=== PATIENT | male | born 1955 | race Caucasian/White ===

== ENCOUNTER → 2017-12-19 08:30 | Outpatient (CLI) | payer MEDICARE, MEDICAID, SELFPAY ==
[2017-12-19 11:14] LABS: AST(SGOT) 20 U/L (15-37); Alanine Aminotransfer ALT/SGPT 32 U/L (16-61); Albumin, Serum 3.7 g/dL (3.2-5.0); Alkaline Phosphatase 106 U/L (45-117); Anion Gap 8 (5-15); BUN 21 mg/dL (7-18); Calcium,Total 8.9 mg/dL (8.5-10.1); Chloride 102 mmol/L (98-107); Creatinine, Serum 0.57 mg/dL (0.70-1.30); EST Glomerular Filtration Rate 155 mL/min (>60); Est Glom Filt Rate - Afr Amer 187 mL/min (>60); Globulin 3.8 g/dL (2.2-4.2); Glucose 88 mg/dL (74-106); Potassium 3.6 mmol/L (3.5-5.1); Protein, Total 7.5 g/dL (6.4-8.2); Sodium Level 141 mmol/L (136-145)
== END ==
PROVIDERS: Family Provider Family Medicine; PCP Family Medicine; Visit Provider Psychiatry & Neurology Neurology
DX: G40.909 Epilepsy, unspecified, not intractable, without status epilepticus (principal)
CPT/HCPCS: 36415; 80053; 80156

== ENCOUNTER 2018-01-13 08:09 | Emergency (ER) | payer MEDICARE, MEDICAID, SELFPAY ==
[2018-01-13 08:11] VITALS: BP 153/89; PULSE 65; RESP 20; TEMP 36.2; O2SAT 98; BMI 24.7
--- NOTE | 2018-01-13 08:23 | CT_ITS ---
STUDY: CT BRAIN WITHOUT CONTRAST REASON FOR EXAM: Male, 62 years old. Harnessed into wheelchair-fell down several steps, laceration to bridge of nose and right forehead. Hx paraplegia with lower extremity atrophy, hypertension, seizures. RADIATION DOSAGE (If Supplied By Facility): CTDIvol = ( 44.99 ) mGy, DLP = ( 1794.70 ) mGycm TECHNIQUE: Transaxial CT imaging of the brain was performed without administration of intravenous contrast material. Individualized dose optimization techniques were used for this CT. COMPARISON: None. FINDINGS: Normal soft tissue structures. Normal calvarium. Normal size ventricles and extra-axial spaces for the patient's age. Subependymal calcifications are seen in the right and left lateral ventricles most likely due to an old infectious process or tuberous sclerosis. Normal white matter tracts of the cerebral hemispheres. Normal basal ganglia and thalami. Normal brainstem. There is severe cerebellar atrophy. There is no intracranial hemorrhage. There are no findings of an acute ischemic infarction. Normal visualized paranasal sinuses. CT/Brain/Head without Contrast IMPRESSION: Chronic involutional changes of the brain. Severe cerebellar atrophy. Subependymal calcifications in the right and left lateral ventricles most likely due to an old infectious process or tuberous sclerosis. Electronically Signed: Marcio Quiles MD at 9:39 EDT Tel , Service support ,
--- NOTE | 2018-01-13 08:23 | CT_ITS ---
STUDY: CT FACIAL BONES WITHOUT CONTRAST REASON FOR EXAM: Male, 62 years old. Harnessed into wheelchair-fell down several steps, laceration to bridge of nose and right forehead. Hx paraplegia with lower extremity atrophy, hypertension, seizures RADIATION DOSAGE (If Supplied By Facility): CTDIvol = ( 29.38 ) mGy, DLP = ( 591.53 ) mGycm TECHNIQUE: The patient was scanned in a multi detector CT scanner. Sagittal and coronal images were reconstructed. Individualized dose optimization techniques were used for this CT. COMPARISON: None. FINDINGS: Normal soft tissue structures. There is thickening of the osseous structures in the calvarium may be due to chronic cerebral volume loss. Normal orbital richards and orbital contents. There is deformity of the right nasal bone consistent with an old fracture. There is no evidence of acute bone injury. There is mucosal thickening in the ethmoid air cells, maxillary sinuses and sphenoid sinus suggesting chronic sinusitis more prominent in the left maxillary sinus. CT/Sinus/Facial Bone IMPRESSION: Chronic sinusitis. There is no evidence of acute fracture. Electronically Signed: Marcio Quiles MD at 9:55 EDT Tel , Service support ,
--- NOTE | 2018-01-13 08:23 | CT_ITS ---
STUDY: CT CERVICAL SPINE WITHOUT CONTRAST REASON FOR EXAM: Male, 62 years old. Harnessed into wheelchair-fell down several steps, laceration to bridge of nose and right forehead. Hx paraplegia with lower extremity atrophy, hypertension, seizures. RADIATION DOSAGE (If Supplied By Facility): CTDIvol = ( 20.98 ) mGy, DLP = ( 428.45 ) mGycm TECHNIQUE: High resolution transaxial imaging was performed without contrast material. Sagittal and coronal images were reconstructed. Individualized dose optimization techniques were used for this CT. COMPARISON: None FINDINGS: Normal craniovertebral junction. Normal anterior atlantoaxial articulation. Normal odontoid process. Normal cervical lordosis. Normal vertebral bodies and posterior osseous elements. C2-3: Endplate spondylosis. Central and paracentral disc bulge. Degenerative changes of the bilateral facet joints and uncovertebral joints. Severe narrowing of the central canal and the bilateral intervertebral neural foramina. C3-4: Anterior fusion in good alignment. Hypertrophic changes of the bilateral facet joints and uncovertebral joints. Moderate narrowing of the central canal and the bilateral intervertebral neural foramina. C4-5: Anterior fusion in good alignment. Hypertrophic changes of the bilateral facet joints and uncovertebral joints. Moderate narrowing of the central canal and the bilateral intervertebral neural foramina. C5-6: Anterior fusion in good alignment. Hypertrophic changes of the bilateral facet joints and uncovertebral joints. Moderate narrowing of the central canal and the bilateral intervertebral neural foramina. C6-7: Endplate spondylosis. Central and paracentral disc bulge. Degenerative changes of the bilateral facet joints and uncovertebral joints. Severe narrowing of the central canal and the bilateral intervertebral neural foramina. C7-T1: Endplate spondylosis. Decreased disc height and large circumferential disc osteophyte bulge. Degenerative changes of the bilateral facet joints. Severe narrowing of the central canal and bilateral intervertebral neural foramina. Normal visualized soft tissue structures. CT/Spine Cervical without Contras IMPRESSION: Multilevel degenerative changes, as described above. Electronically Signed: Marcio Quiles MD at 10:07 EDT Tel , Service support ,
--- NOTE | 2018-01-13 09:01 | ED.VISSUMM ---
- ER Visit Summary Date of Service: 01/13/18 Chief Complaint: Facial trauma History of Present Illness: The patient is a 62 M who presents with facial trauma. Patient was harnessed into his wheelchair when he rolled towards the steps and fell down 3 of the stairs. Patient is MR and paraplegic. Staff said that he was screaming the entire time and there was no LOC. He sustained lacerations to his face. He is moving all of his extremities as normal. He does live in a shelter. Last tetanus is unknown with paperwork given. Physical Examination: Vital signs are reviewed and are unremarkable. HEENT exam reveals a 1.5 center laceration to right forehead and there is a 1 cm laceration to the bridge of the nose. His pupils are equal. He is acting normally per staff. Neck has no step-offs is nontender. Heart is regular rate and rhythm. Lungs are clear. Abdomen is soft. Extremities reveal he has range of motion of his upper extremities. He is paraplegic of the lower extremities. His GCS is 14 which is his baseline. Test Results: CAT scan of the head, face and cervical spine reveals no acute findings Emergency Department Course and Treatment: Patient had a laceration repair. Lidocaine was used to anesthetize area. A total of 5, 5-0 sutures were placed. 2 were placed in the forehead and 3 on the nose. His tetanus is updated. He will have sutures out in 5-7 days. They will use topical antibacterial cream for the abrasions on the face. He will follow-up with his PCP Treatment Plan: [] Disposition: Discharge Impression: Facial contusion, facial laceration, 1.5 cm, facial laceration 1 cm, laceration repair by ED physician This note was generated with [employer] dictation software. It may contain incorrect words, spelling, and punctuation that were not noted in review of the chart prior to signing ED Disposition - Plan for ED Patient: Chief Complaint: Fall Referrals: Michel Cassidy MD [Primary Care Provider] -
[2018-01-13] MEDS: Diphth,Pertuss(Acell),Tet Vac 0.5 ML Vial IM (09:58)
[2018-01-13 09:59] VITALS: BP 159/109; PULSE 75; RESP 16; O2SAT 99
--- NOTE | 2018-01-13 10:12 | ED.DEP ---
ED Disposition - Plan for ED Patient: Disposition: Home or Assisted Living Chief Complaint: Fall Instructions: ED Laceration All Referrals: Michel Cassidy MD [Primary Care Provider] -
== END 2018-01-13 10:48 | disposition home or self-care (01) ==
PROVIDERS: Emergency Provider Emergency Medicine; Family Provider Family Medicine; PCP Family Medicine
DX: S01.81XA Laceration without foreign body of other part of head, initial encounter (principal); S01.21XA Laceration without foreign body of nose, initial encounter; S00.83XA Contusion of other part of head, initial encounter; R40.2410 Glasgow coma scale score 13-15, unspecified time; F79 Unspecified intellectual disabilities; G82.20 Paraplegia, unspecified; I10 Essential (primary) hypertension; W10.9XXA Fall (on) (from) unspecified stairs and steps, initial encounter; Y93.9 Activity, unspecified; Y92.9 Unspecified place or not applicable; Z79.899 Other long term (current) drug therapy
CPT/HCPCS: 12011; 70450; 70486; 72125; 90715; 99285

== ENCOUNTER → 2019-01-11 08:59 | Outpatient (CLI) | payer MEDICARE, MEDICAID, SELFPAY ==
[2019-01-11 10:37] LABS: Carbamazepine (Tegretol) 9.5 ug/mL (4.0-12.0)
[2019-01-11 13:53] LABS: ALB/GLOB Ratio 1.1 RATIO (0.9-2.4); AST(SGOT) 13 U/L (15-37); Alanine Aminotransfer ALT/SGPT 26 U/L (16-61); Albumin, Serum 3.7 g/dL (3.2-5.0); Alkaline Phosphatase 105 U/L (45-117); Anion Gap 9 (5-15); BUN 21 mg/dL (7-18); BUN/Creat Ratio 35.2 RATIO (10-20); Calcium,Total 9.1 mg/dL (8.5-10.1); Chloride 106 mmol/L (98-107); EST Glomerular Filtration Rate 146 mL/min (>60); Est Glom Filt Rate - Afr Amer 176 mL/min (>60); Globulin 3.3 g/dL (2.2-4.2); Glucose 89 mg/dL (74-106); Potassium 4.9 mmol/L (3.5-5.1); Sodium Level 146 mmol/L (136-145)
== END ==
PROVIDERS: Family Provider Family Medicine; PCP Family Medicine; Referring Provider Psychiatry & Neurology Neurology; Visit Provider Psychiatry & Neurology Neurology
DX: G40.909 Epilepsy, unspecified, not intractable, without status epilepticus (principal)
CPT/HCPCS: 36415; 80053; 80156

== ENCOUNTER → 2019-05-11 08:45 | Outpatient (CLI) | payer MEDICARE, MEDICAID, SELFPAY ==
[2019-05-11 09:55] LABS: Carbamazepine (Tegretol) 8.5 ug/mL (4.0-12.0)
[2019-05-11 10:15] LABS: AST(SGOT) 16 U/L (15-37); Alanine Aminotransfer ALT/SGPT 31 U/L (16-61); Albumin, Serum 3.8 g/dL (3.2-5.0); Alkaline Phosphatase 117 U/L (45-117); Anion Gap 3 (5-15); BUN 27 mg/dL (7-18); BUN/Creat Ratio 44.1 RATIO (10-20); Calcium,Total 8.8 mg/dL (8.5-10.1); Chloride 109 mmol/L (98-107); Creatinine, Serum 0.61 mg/dL (0.70-1.30); EST Glomerular Filtration Rate 141 mL/min (>60); Est Glom Filt Rate - Afr Amer 171 mL/min (>60); Globulin 3.8 g/dL (2.2-4.2); Glucose 99 mg/dL (74-106); Potassium 4.1 mmol/L (3.5-5.1); Protein, Total 7.6 g/dL (6.4-8.2); Sodium Level 143 mmol/L (136-145)
== END ==
PROVIDERS: Family Provider Family Medicine; PCP Family Medicine; Referring Provider Family Medicine; Visit Provider Family Medicine
DX: G40.909 Epilepsy, unspecified, not intractable, without status epilepticus (principal)
CPT/HCPCS: 36415; 80053; 80156

== ENCOUNTER 2023-10-01 09:49 | Outpatient (RCR) | payer MEDICARE, MEDICAID, SELFPAY ==
[2023-10-01 10:06] VITALS: BP 116/67; PULSE 69; RESP 16; TEMP 36.7
--- NOTE | 2023-10-01 10:29 | WC ---
FREE NURSE EVAL FOR INITIAL VISIT TODAY. NO OPEN WOUND TO LEFT UPPER POST THIGH. SEE COMPLETED PAPERWORK.
== END 2023-10-15 23:59 | disposition home or self-care (01) ==
LOC: WC 09:49
PROVIDERS: PCP Family Medicine; Referring Provider Family Medicine; Visit Provider Nurse Practitioner
DX: Z00.00 Encounter for general adult medical examination without abnormal findings (principal)

== ENCOUNTER 2024-01-21 07:45 | Outpatient (RCR) | payer MEDICARE, MEDICAID, SELFPAY ==
[2023-10-16 00:09] VITALS: BP 116/67; PULSE 69; RESP 16; TEMP 36.7
== END 2024-02-13 23:59 | disposition home or self-care (01) ==
LOC: WC 07:45
PROVIDERS: PCP Family Medicine; Referring Provider Family Medicine; Visit Provider Nurse Practitioner
DX: Z09 Encounter for follow-up examination after completed treatment for conditions other than malignant neoplasm (principal)

== ENCOUNTER 2024-02-03 04:32 | Inpatient (IN) | payer MEDICARE, MEDICAID, SELFPAY ==
[2024-02-03] VITALS (13 sets, daily range): BP systolic 96–124; BP diastolic 51–87; PULSE 62–83; RESP 14–18; TEMP 36.4–37.1; O2SAT 93–100; BMI 26.9; BMI 26.8
--- NOTE | 2024-02-03 04:16 | HP.PCM.HOS_ITS ---
HPI - General General Date of Admission: 02/03/24 Date of Service: 02/03/24 Chief Complaint: Bloody diarrhea and sepsis. HPI Narrative AARON HUDSON, is a 68 M with a past medical history of Cerebral Palsy, severe MR-DD; nonverbal and bedbound at baseline with intellectual delay, seizure disorder; on carbamazepine, essential hypertension, hypothyroidism and osteoporosis who was sent to [facility] in transfer from [facility] ER with complaints of bloody diarrhea and sepsis. Mr. Hudson is not a reliable historian so information was gathered from chart, medical staff and computer. According to the records the patient's symptoms began approximately 1 day prior to admission with patient having decreased appetite and indicating abdominal pain followed by bloody loose stools. In the ER at [facility] he was noted to have leukocytosis os 20k with lactic acidosis of 2.6 mmol/L and a systolic blood pressure in the 90 mmHg range with a UA positive for Acute Cystitis; without hematuria so he was treated with IV Zosyn and given a sepsis fluid bolus of 30 cc/kg and then arrangements were made to transfer him here for ongoing care as they were apparently unable to care for him at that facility. He was then admitted to the ICU for ongoing care for stay that is expected to extend beyond 2 midnights. [facility] Home Medications ?Medication ?Instructions ?Recorded ?Last Taken ?Type Certavite 1 tab PO DAILY 08/09/14 Unknown History Hibiclens 08/09/14 Unknown History Oyster Shell 500 mg PO BID 08/09/14 Unknown History Triamcinolone 0.1% Cream [Kenalog] 1 applic TP 08/09/14 Unknown History alendronate 70 mg tablet 70 mg PO Q7D@0700 08/09/14 Unknown History carbamazepine 200 mg tablet 100 mg PO BIDCM 08/09/14 Unknown History carbamazepine 200 mg tablet 200 mg PO BIDCM 08/09/14 Unknown History folic acid 1 mg tablet 1 mg PO DAILY@0800 08/09/14 Unknown History hydrochlorothiazide 25 mg tablet 25 mg PO DAILY 08/09/14 Unknown History levothyroxine 75 mcg tablet 75 mcg PO DAILY 08/09/14 Unknown History mupirocin 2 % topical ointment 1 applic topical TID 08/09/14 Unknown History polyethylene glycol 3350 17 gram 17 g PO QODAY 08/09/14 Unknown History oral powder packet risperidone 2 mg tablet 2 mg PO BID 08/09/14 Unknown History Allergy/AdvReac Type Severity Reaction Status Date / Time chlorpromazine HCl (From Allergy Unknown Verified 01/13/18 08:16 Thorazine) molindone HCl (From Moban) Allergy Unknown Verified 01/13/18 08:16 trihexyphenidyl HCl (From Allergy Unknown Verified 01/13/18 08:16 Artane) Social History Smoking Status: Never smoker ROS ROS Narrative This patient has severe MR-DD with intellectual delay and cannot complete a review of systems. Physical Exam Const alert Constitutional Narrative: Patient is alert with obvious MR-DD. General Appearance: uncooperative Orientation / Consciousness: confused HEENT normocephalic and head/scalp atraumatic HEENT Narrative: Mucous membranes dry. Eyes PERRL and EOMs intact bilaterally Neck no lymphadenopathy and supple Resp normal respiratory effort, no retractions, no use of accessory muscles and clear to auscultation bilaterally Cardio regular rate and regular rhythm GI normal to inspection, nondistended, normoactive bowel sounds, soft to palpation, non-tender and non-distended Extremity normal to inspection and full ROM Skin Skin Narrative: Patient has no evidence of jaundice, abscess or rash. Neuro Neuro Narrative: Patient has severe MRDD and is lethargic and cannot follow commands. Sensorium / Orientation: awake and alert Psych Mood & Affect: anxious Results Medical Records Data Attestation: I reviewed the patient's medical records Lab / Micro Data Attestation: I reviewed the patient's lab results. 02/03/24 05:05 Assessment & Plan Assessment/Plan (1) Sepsis: QUALIFIERS: Sepsis acute organ dysfunction status: without acute organ dysfunction Sepsis type: sepsis due to unspecified organism Qualified Code(s): A41.9 - Sepsis, unspecified organism (2) Lactic acidosis: (3) Bloody diarrhea: (4) Acute cystitis without hematuria: (5) Hypotension: QUALIFIERS: Hypotension type: unspecified hypotension type Q ualified Code(s): I95.9 - Hypotension, unspecified (6) Cerebral palsy: QUALIFIERS: Cerebral palsy type: unspecified type Qualified Code(s): G80.9 - Cerebral palsy, unspecified PLAN: Plan 1. Suspected Sepsis due to colitis with bloody diarrhea, Leukocytosis of 20K and lactic acidosis of 2.6 mmol/L present on admission - Admit to ICU for treatment under the sepsis protocol. Check stool studies and treat empirically with IV Zosyn with C. difficile ruled out at [facility]. Serialize lactate. Continue volume resuscitation and give Tylenol as needed pain or fever. Check nuclear medicine GI bleeding scan to pinpoint source of blood loss. Finally, we will consult gastroenterology to see this patient on rounds in the a.m. for further recommendations regarding endoscopy this admission with help appreciated in advance. 2. Severe MR-DD with intellectual delay complicating #1 - Continue supportive care. 3. Seizure disorder; on carbamazepine - Resume carbamazepine as previously scheduled plus give as needed IV Ativan for breakthrough seizure activity. 4. Essential hypertension - Hold scheduled antihypertensives until infection outlined in #1 is neutralized. 5. Hypothyroidism - Continue Synthroid and check TSH. 6. Osteoporosis - Resume alendronate as an outpatient. 7. DVT/GI prophylaxis - SCD's only with bloody stools noted this. Give Protonix 40 mg IV twice daily. Total time: Approximately 75 minutes. Sepsis Attestation Sepsis Attestation: Sepsis Ruled Out Date exam was performed: 02/03/24 Time exam was performed: 04:00 Possible Source of Sepsis: GI tract/intra-abdominal and Genitourinary Sepsis Organ Dysfunction Criteria Present: Lactic Acid > 2 mmol/L Fluid Resuscitation Fluid resuscitation indicated?: Yes Fluid Resuscitation ordered: 30 ml/kg fluid bolus ordered Amount of fluid ordered: 3 Sepsis Note Date exam was performed: 02/03/24 Time exam was performed: 07:00 Sepsis Attestation: Sepsis re-evaluation was performed Response to fluids: Fluid responsive hypotension Charges/Coding Visit Charges Inpatient E&M: 27576 Init Hosp L3
--- NOTE | 2024-02-03 04:27 | NM_ITS ---
EXAM: NM GI BLEEDING SCAN CLINICAL INDICATION: Bloody diarrhea with sepsis -- No blood in stool, Sepsis -- *pt non verbal, profound MRDD-best scan possible -- HgB 12.8 (13-16.5) -- WBC 20 (4.4-11) TECHNIQUE: IV administration of 26.8 mCi Tc99m autologous labeled red blood cells. Anterior-projection images of the abdomen and pelvis were obtained with dynamic acquisitions over one hour. COMPARISON: No relevant prior studies available. FINDINGS: STOMACH AND BOWEL: Normal. No abnormal tracer to suggest active gastrointestinal bleeding. OTHER VISCERA: Normal. Expected normal activity in the aorta and iliac vessels, liver and spleen. NM/GI Bleed Scan IMPRESSION: No evidence of active GI bleeding. Electronically Signed: Antonio Lake MD at 11:30 EDT ,
[2024-02-03] MEDS: 0.9% Normal Saline (1000mL) 1,000 ML 100 ML IV ×2 (05:18→16:53)
[2024-02-03 05:41] LABS: Mucous, Urine 0 SEEN /hpf (<or=2+); Squamous Epithelial Cells - UA 0 SEEN /hpf (0-5)
[2024-02-03 06:07] LABS: ALB/GLOB Ratio 0.9 RATIO (0.9-2.4); AST(SGOT) 31 U/L (15-37); Alanine Aminotransfer ALT/SGPT 39 U/L (16-61); Alkaline Phosphatase 78 U/L (45-117); Anion Gap 7 (5-15); BUN 34 mg/dL (7-18); BUN/Creat Ratio 43.2 RATIO (10-20); Calcium,Total 8.6 mg/dL (8.5-10.1); Chloride 109 mmol/L (98-107); Creatinine, Serum 0.79 mg/dL (0.70-1.30); EST Glomerular Filtration Rate 104 mL/min (>60); Est Glom Filt Rate - Afr Amer 126 mL/min (>60); Estimated Creatinine Clearance 79.75 ml/min; Globulin 3.5 g/dL (2.2-4.2); Glucose 118 mg/dL (74-106); Potassium 4.5 mmol/L (3.5-5.1); Protein, Total 6.5 g/dL (6.4-8.2); Sodium Level 138 mmol/L (136-145); Thyroid Stim Hormone (TSH) 1.92 uIU/mL (0.358-3.74); Troponin-I HS 4 pg/mL (3.0-78.0)
[2024-02-03 06:24] LABS: Color, Urine Amber (Yellow); Glucose, Dipstick Normal (Normal); Ketone-Dipstick Negative (Negative); Leukocyte Esterase-Dipstick 500 /ul (Negative); Nitrite-Dipstick Negative (Negative); Occult Blood-Urine 250 /ul (Negative); Protein-Dipstick 30 mg/dl (Negative); Specific Gravity, Urine 1.015 (1.002-1.030); Urine Bilirubin Dipstick Negative (Negative); Urine Clarity Clear (Clear); Urine Urobilinogen 4 mg/dl (Normal)
[2024-02-03] MEDS: Piperacil/Tazobactam 3.375 GM in 0.9% Normal Saline (50mL MB+) 50 ML IV ×3 (06:24→21:56)
--- NOTE | 2024-02-03 06:51 | EX.PCM.CONCC ---
Assessment & Plan Assessment/Plan (1) Bloody diarrhea: (2) Cerebral palsy: QUALIFIERS: Cerebral palsy type: unspecified type Qualified Code(s): G80.9 - Cerebral palsy, unspecified PLAN: Plan RECOMMENDATIONS: 1. Continue empiric antibiotics and gentle IV fluid hydration. Blood and urine cultures are pending. 2. Repeat CBC is pending. 3. Monitor blood counts and transfuse if hemoglobin drops below 7 g/dL. 4. Low clinical utility in performing bleeding scan given stable hemoglobin. 5. Obtain follow-up lactate. IMPRESSIONS: 1. Self-limited diarrheal illness with hypotension Unclear etiology, although suspect viral gastroenteritis. Blood and urine cultures are pending. As such, the patient can be continued on empiric antibiotics for now. Enteric pathogen panel is pending. The patient's blood pressure responded to fluids and his mild lactic acidemia has resolved. I do not suspect that the patient is experiencing an overt gastrointestinal bleed, given his stable hemoglobin. 2. Suspected UTI The patient was positive for leukocyte esterase and 2+ urine bacteria. Cultures are pending. Agree with continuing antibiotics for now. 3. History of CP/MRDD/unspecified seizure disorder/hypothyroidism/hypertension Complicates care, management, recovery and prognosis. Continue to hold home antihypertensives for now. Continue Tegretol and Synthroid as ordered. This note was generated with [employer] dictation software. It may contain incorrect words, spelling, and punctuation that were not noted in checking the note before signing. HPI Consult Data Date of Consult: 02/03/24 HPI Narrative Reason for Consultation: Sepsis HPI Narrative: The patient is a 68-year-old male, with a history as outlined below, who presented to the hospital as a transfer of care from [facility] emergency department with bloody diarrhea and hypotension. The patient has a baseline medical history that includes cerebral palsy, MRDD and unspecified seizure disorder. He is bedbound and nonverbal at his baseline. Therefore, information pertinent to his hospitalization was obtained primarily via chart review. The patient currently resides in a halfway. The patient apparently developed multiple episodes of watery diarrhea, which later became more bloody in nature. According to [facility] department the patient had a temperature of 38.1 degrees upon presentation. Blood pressure was documented to be 108/89 mmHg. Chest x-ray demonstrated no focal consolidation. White count was elevated at 20,000. Creatinine was normal at 0.9. Lipase and LFTs were within normal limits. Troponin was negative. Lactate was mildly elevated at 2.6. Urine analysis was negative for nitrates and leukocyte esterase. 4+ urine bacteria was noted. CT abdomen/pelvis demonstrated proctocolitis. The patient received 3 L of normal saline and was given empiric antibiotics. C. difficile was negative. At the present time, the patient is afebrile and hemodynamically stable. He is maintaining appropriate oxygen saturations on room air. He remains on empiric antimicrobials and supplemental IV fluids. [facility] Home Medications ?Medication ?Instructions ?Recorded ?Last Taken ?Type Certavite 1 tab PO DAILY 08/09/14 Unknown History Hibiclens 08/09/14 Unknown History Oyster Shell 500 mg PO BID 08/09/14 Unknown History Triamcinolone 0.1% Cream [Kenalog] 1 applic TP 08/09/14 Unknown History alendronate 70 mg tablet 70 mg PO Q7D@0700 08/09/14 Unknown History carbamazepine 200 mg tablet 100 mg PO BIDCM 08/09/14 Unknown History carbamazepine 200 mg tablet 200 mg PO BIDCM 08/09/14 Unknown History folic acid 1 mg tablet 1 mg PO DAILY@0800 08/09/14 Unknown History hydrochlorothiazide 25 mg tablet 25 mg PO DAILY 08/09/14 Unknown History levothyroxine 75 mcg tablet 75 mcg PO DAILY 08/09/14 Unknown History mupirocin 2 % topical ointment 1 applic topical TID 08/09/14 Unknown History polyethylene glycol 3350 17 gram 17 g PO QODAY 08/09/14 Unknown History oral powder packet risperidone 2 mg tablet 2 mg PO BID 08/09/14 Unknown History Allergy/AdvReac Type Severity Reaction Status Date / Time chlorpromazine HCl (From Allergy Unknown Verified 01/13/18 08:16 Thorazine) molindone HCl (From Moban) Allergy Unknown Verified 01/13/18 08:16 trihexyphenidyl HCl (From Allergy Unknown Verified 01/13/18 08:16 Artane) Social History Smoking Status: Never smoker ROS Review of Systems ROS Unobtainable: due to mental status Physical Exam Const alert and no apparent distress Constitutional Narrative: Baseline nonverbal status HEENT normocephalic and head/scalp atraumatic Eyes PERRL and EOMs intact bilaterally Neck supple General: trachea midline Resp normal respiratory effort Auscultation: diminished lung sounds Cardio regular rate and regular rhythm GI normal to inspection, nondistended, normoactive bowel sounds Extremity no clubbing, cyanosis or edema Skin no rashes or lesions noted Neuro no focal motor deficits Neuro Narrative: Baseline neurological status. Psych Mood & Affect: flat affect Lab / Micro Data 02/03/24 08:55 02/03/24 05:05 Labs: Laboratory Results - last 24 hr 02/03/24 05:05: Sodium 138, Potassium 4.5, Chloride 109 H, Carbon Dioxide 22.0, Anion Gap 7, BUN 34 H, Creatinine 0.79, Estim Creat Clear Calc 79.75, Est GFR (MDRD) Af Amer 126, Est GFR (MDRD) Non-Af 104, BUN/Creatinine Ratio 43.2 H, Glucose 118 H, Calcium 8.6, Total Bilirubin 0.50, AST 31, ALT 39, Alkaline Phosphatase 78, Troponin I High Sens 4, Total Protein 6.5, Albumin 3.0 L, Globulin 3.5, Albumin/Globulin Ratio 0.9, TSH 1.92 Charges/Coding Visit Charges Inpatient E&M: 86829 Init Hosp L3
[2024-02-03 07:02] LABS: Bacteria 2+ /hpf (None Seen); Red Blood Cells-Urine 5-10 SEEN /hpf (0-5); White Blood Cells 5-10 SEEN /hpf (0-5)
[2024-02-03 09:06] LABS: Absolute Lymphocyte Count 0.64 X10^3/uL (0.83-4.51); Absolute Neutrophil Count 17.5 X10^3/uL (2.0-7.7); Basophil# 0.04 X10^3/uL; Basophil% 0.2 % (0-1); Eosinophil# 0.37 X10^3/uL; Eosinophils% 1.8 % (0-5); Hematocrit 38.2 % (40-54); Hemoglobin 12.8 g/dL (13.0-16.5); Lymphocyte # 0.64 X10^3/ul (0.83-4.51); Lymphocyte % 3.2 % (19-41); Mean Corp Hgb Conc 33.5 g/dL (32-36); Mean Corpuscular Hgb 31.2 pg (27.0-32.0); Mean Corpuscular Volume 93.2 fL (80-94); Mean Platelet Vol. 10.3 fl (6.2-12.0); NRBC Flagged by Analyzer 0 % (0-5); Neutrophil # 17.51 X10^3/uL (2.7-7.7); Neutrophil % 87.5 % (47-70); Platelet Count 215 K/mm3 (150-450); RBC Distribution Width CV 13.2 % (11.6-14.6)
[2024-02-03 09:31] LABS: Lactic Acid 1.6 mmol/L (0.4-1.9)
--- NOTE | 2024-02-03 12:26 | CASEMGMT ---
Addendum entered by Kaye Mcginnis 02/03/24 15:35: Social Work Further information faxed from [employer] regarding getting consent for any medical treatment, the 24 line for [employer] is or [phone]. DARSHAN Trujillo Addendum entered by Kaye Mcginnis 02/03/24 14:25: Social Work Pt's guardian Verito Dick([phone]) called back, SW let her know pt was here in the hospital. She was not aware until SW called earlier today. She did fax over guardianship paperwork, it's been placed on the chart. She inquired what was going on medically w/pt, SW faxed over clinical information. Verito states if any consents need signed to fax them to [phone], and put on the document to Verito's attention in large letters. SW did leave a message for SECTION HAND HELPER to let her know. DARSHAN Trujillo Addendum entered by Kaye Mcginnis 02/03/24 13:13: Social Work SW received a call back from Kathrine Barron, skilled nursing RN, in regard to pt. She confirms pt needs total care. She clarified pt's diet--mechanical soft, nectar thickened liquids, extra gravy and condiments as needed, meats under one inch. Pt can have thin liquid outside of meal time. She states they anticipate being able to take pt back when medically ready. When pt is ready for discharge, they can transport pt back as his wheelchair should be here. She states to call her, she is acquisition marketing manager this week and weekend, and she will arrange transportation back to the skilled nursing([phone]). She did also want clinical information, SW faxed this to the skilled nursing. DARSHAN Trujillo Original Note: Social Work SW reviewed chart, pt is here from a skilled nursing, has a guardian. SW called [employer]([phone]), his guardian is Verito Dikc. SW left a message for her to call SW back, and also asked [employer] to fax over the guardianship form. REYMUNDO called Kathrine Barron and Lo Jean, both listed on face sheet as contacts, both work w/the skilled nursing. Messages left. SW will continue to follow. DARSHAN Trujillo
[2024-02-03] MEDS: Pantoprazole Sodium 40 MG in 0.9% Normal Saline (100mL MB+) 100 ML 330 MG IV ×2 (12:31→21:56)
[2024-02-03] MEDS: Mupirocin Ointment 22gm Tube 1 APPLIC TOPICAL ×2 (12:33→21:57)
[2024-02-03] MEDS: carBAMazepine 200 MG Tablet 100 MG PO (14:16)
[2024-02-03] MEDS: carBAMazepine 200 MG Tablet PO (14:16)
[2024-02-03] MEDS: RisperiDONE 2 MG Tablet PO (14:16)
[2024-02-04 02:29] VITALS: BMI 27.5
[2024-02-04] MEDS: 0.9% Normal Saline (1000mL) 1,000 ML 100 ML IV (02:53)
[2024-02-04 03:00] VITALS: BP 131/72; PULSE 65; RESP 12; TEMP 36.8; O2SAT 98
[2024-02-04 05:00] VITALS: BP 113/72; PULSE 68; RESP 18; TEMP 37; O2SAT 93
[2024-02-04] MEDS: Levothyroxine 75 MCG Tablet PO (05:08)
[2024-02-04] MEDS: Piperacil/Tazobactam 3.375 GM in 0.9% Normal Saline (50mL MB+) 50 ML IV ×3 (05:08→20:28)
[2024-02-04] MEDS: Mupirocin Ointment 22gm Tube 1 APPLIC TOPICAL ×3 (05:11→20:27)
[2024-02-04 06:01] LABS: Absolute Lymphocyte Count 1.05 X10^3/uL (0.83-4.51); Basophil# 0.03 X10^3/uL; Basophil% 0.3 % (0-1); Eosinophil# 0.07 X10^3/uL; Eosinophils% 0.7 % (0-5); Hematocrit 35.8 % (40-54); Hemoglobin 11.8 g/dL (13.0-16.5); Lymphocyte # 1.05 X10^3/ul (0.83-4.51); Lymphocyte % 10.5 % (19-41); Mean Corpuscular Hgb 31.2 pg (27.0-32.0); Mean Corpuscular Volume 94.7 fL (80-94); Mean Platelet Vol. 10.4 fl (6.2-12.0); Monocyte# 0.82 X10^3/uL; Monocyte% 8.2 % (0-10); NRBC Flagged by Analyzer 0 % (0-5); Neutrophil # 7.99 X10^3/uL (2.7-7.7); Platelet Count 193 K/mm3 (150-450); RBC Distribution Width CV 13.3 % (11.6-14.6); RBC Distribution Width SD 46.5 fl (35.1-43.9); Red Blood Count 3.78 M/mm3 (4.6-6.2)
[2024-02-04 06:34] LABS: Anion Gap 8 (5-15); BUN 29 mg/dL (7-18); BUN/Creat Ratio 56.8 RATIO (10-20); Calcium,Total 7.9 mg/dL (8.5-10.1); Chloride 113 mmol/L (98-107); Creatinine, Serum 0.51 mg/dL (0.70-1.30); EST Glomerular Filtration Rate 171 mL/min (>60); Est Glom Filt Rate - Afr Amer 207 mL/min (>60); Glucose 89 mg/dL (74-106); Potassium 3.3 mmol/L (3.5-5.1); Sodium Level 144 mmol/L (136-145)
--- NOTE | 2024-02-04 06:43 | PCM.PN.INT ---
Assessment & Plan Assessment/Plan (1) Bloody diarrhea: (2) Cerebral palsy: QUALIFIERS: Cerebral palsy type: unspecified type Qualified Code(s): G80.9 - Cerebral palsy, unspecified PLAN: Plan RECOMMENDATIONS: 1. Continue empiric antibiotics, pending finalized culture results. 2. Monitor blood counts and transfuse if hemoglobin drops below 7 g/dL. 3. Dietary advancement as tolerated. 4. The patient is medically stable for transfer out of the intensive care unit. 5. Will sign off from a critical care perspective. Please call with any additional questions. IMPRESSIONS: 1. Self-limited diarrheal illness with hypotension Unclear etiology, although suspect viral gastroenteritis. Blood and urine cultures are pending. As such, the patient can be continued on empiric antibiotics for now. The patient has remained hemodynamically stable. I do not suspect that the patient is experiencing an overt gastrointestinal bleed. Hemoglobin is stable. 2. Suspected UTI The patient was positive for leukocyte esterase and 2+ urine bacteria. Cultures are pending. Agree with continuing antibiotics for now. 3. History of CP/MRDD/unspecified seizure disorder/hypothyroidism/hypertension Complicates care, management, recovery and prognosis. Continue Tegretol and Synthroid as ordered. This note was generated with [employer] ([employer]) dictation software. It may contain incorrect words, spelling, and punctuation that were not noted in checking the note before signing. Subjective Subjective The patient was seen and examined at the bedside this morning. Events from the last 24 hours have been reviewed. The patient is currently afebrile, hemodynamically stable and maintaining appropriate oxygen saturations on room air. No overnight issues were identified by the nursing staff. Potassium is low at 3.3 this morning. Objective Data Objective Data The patient's most recent lab work, culture data and imaging studies have all been personally reviewed. COVID, influenza and RSV PCR's were negative. Blood and urine cultures are pending. Vital Signs: Vital Signs Temp Pulse Resp BP Pulse Ox O2 Del Method O2 Flow Rate 98.6 F 68 18 113/72 93 Room Air 2 02/04/24 05:00 02/04/24 05:00 02/04/24 05:00 02/04/24 05:00 02/04/24 05:00 02/04/24 05:00 02/03/24 04:26 Oxygen Flow Rate (L/min) 2 Oxygen Delivery Method Room Air Weight: 171 lb 4.787 oz Body Mass Index (BMI) 27.5 Intake & Output: Intake and Output for Last 24 Hours 02/02/24 02/03/24 02/04/24 23:59 23:59 23:59 Intake Total 1320 / 1320 1050 / 1050 Output Total 400 / 550 300 / 300 Balance 920 / 770 750 / 750 Lab / Micro Data Attestation: I reviewed the patient's lab results. 02/04/24 05:43 02/04/24 05:43 Labs: Laboratory Results - last 24 hr 02/03/24 05:30: Urine Color Aline, Urine Clarity Clear, Urine pH 6.0, Ur Specific [place] 1.015, Urine Protein 30 H, Urine Glucose (UA) Normal, Urine Ketones Negative, Urine Occult Blood 250 H, Urine Nitrite Negative, Urine Bilirubin Negative, Urine Urobilinogen 4 H, Ur Leukocyte Esterase 500 H, Urine RBC 5-10 SEEN, Urine WBC 5-10 SEEN, Ur Squamous Epith Cells 0 SEEN, Urine Bacteria 2+, Urine Mucus 0 SEEN 02/03/24 08:55: WBC 20.0 H, RBC 4.10 L, Hgb 12.8 L, Hct 38.2 L, MCV 93.2, MCH 31.2, MCHC 33.5, RDW Std Deviation 45.0 H, RDW Coeff of Kellie 13.2, Plt Count 215, MPV 10.3, Immature Gran % (Auto) 0.300, Neut % (Auto) 87.5 H, Lymph % (Auto) 3.2 L, [place] % (Auto) 7.0, Eos % (Auto) 1.8, Baso % (Auto) 0.2, Absolute Neuts (auto) 17.5 H, Absolute Lymphs (auto) 0.64 L, Nucleated RBC % 0, Lactic Acid 1.6 02/04/24 05:43: WBC 10.0, RBC 3.78 L, Hgb 11.8 L, Hct 35.8 L, MCV 94.7 H, MCH 31.2, MCHC 33.0, RDW Std Deviation 46.5 H, RDW Coeff of Kellie 13.3, Plt Count 193, MPV 10.4, Immature Gran % (Auto) 0.300, Neut % (Auto) 80.0 H, Lymph % (Auto) 10.5 L, [place] % (Auto) 8.2, Eos % (Auto) 0.7, Baso % (Auto) 0.3, Absolute Neuts (auto) 8.0 H, Absolute Lymphs (auto) 1.05, Nucleated RBC % 0, Sodium 144, Potassium 3.3 L, Chloride 113 H, Carbon Dioxide 23.0, Anion Gap 8, BUN 29 H, Creatinine 0.51 L, Estim Creat Clear Calc 86.70, Est GFR (MDRD) Af Amer 207, Est GFR (MDRD) Non-Af 171, BUN/Creatinine Ratio 56.8 H, Glucose 89, Calcium 7.9 L Micro: Microbiology 02/03/24 10:55 Mucosa - Nose SARS-CoV-2, Influenza & RSV (PCR) - Final Radiography Diagnostic Testing: Radiology Impression GI Bleed Scan Nuclear Medicine 02/03/24 04:27 IMPRESSION: No evidence of active GI bleeding. Electronically Signed: Antonio Lake MD at 11:30 EDT , Physical Exam Const alert and no apparent distress Constitutional Narrative: Baseline nonverbal status HEENT normocephalic and head/scalp atraumatic Eyes PERRL and EOMs intact bilaterally Neck supple General: trachea midline Resp normal respiratory effort Auscultation: diminished lung sounds Cardio regular rate and regular rhythm GI normal to inspection, nondistended, normoactive bowel sounds Extremity no clubbing, cyanosis or edema Skin no rashes or lesions noted Neuro no focal motor deficits Neuro Narrative: Baseline neurological status. Psych Mood & Affect: flat affect Charges/Coding Visit Charges Inpatient E&M: 20065 Subs Hosp L2
[2024-02-04] MEDS: Folic Acid 1 MG Tablet PO (08:48)
[2024-02-04] MEDS: carBAMazepine 200 MG Tablet 100 MG PO ×2 (08:48→17:08)
[2024-02-04] MEDS: carBAMazepine 200 MG Tablet PO ×2 (08:49→17:08)
[2024-02-04] MEDS: RisperiDONE 2 MG Tablet PO ×2 (08:49→20:28)
[2024-02-04] MEDS: Calcium (Elemental) 500 MG Tablet PO ×2 (08:49→20:28)
--- NOTE | 2024-02-04 08:58 | ST.MBS ---
Modified Barium Swallow Patient Information Study Date: 02/04/24 Referring Physician: Chapin Ceron Penetration-Aspiration Scale Penetration-Aspiration Scale: OBJECTIVE ASSESSMENT OF SWALLOW FUNCTION (QUANTITATIVE ? PER TRIAL): PENETRATION / ASPIRATION SCALE (SNELL): 1 = does not enter airway 2 = enters airway/above vocal folds/ejected 3 = enters airway/above vocal folds/not ejected 4 = enters airway/contacts vocal folds/ejected 5 = enters airway/contacts vocal folds/not ejected 6 = enters airway/below vocal folds/ejected 7 = enters airway/below vocal folds/not ejected despite effort 8 = enters airway/below vocal folds/no effort VIDEOFLOROSCOPIC SCALE SCORE (SNELL): Grade I = aspiration of material that has penetrated into the laryngeal vestibule, intact cough reflex Grade II = aspiration < 10 % of the bolus, intact cough reflex Grade III = aspiration of < 10 % of the bolus, reduced cough reflex or aspiration of > 10 % of the bolus, intact cough reflex Grade IV = aspiration of > 10 % of the bolus, reduced cough reflex
[2024-02-04 09:00] VITALS: BP 140/92; PULSE 74; RESP 14; TEMP 36.2; O2SAT 100
[2024-02-04] MEDS: Pantoprazole Sodium 40 MG in 0.9% Normal Saline (100mL MB+) 100 ML 330 MG IV ×2 (10:20→20:27)
[2024-02-04 14:00] VITALS: BP 114/69; PULSE 62; RESP 19; TEMP 36.7; O2SAT 92
--- NOTE | 2024-02-04 17:05 | PN.HOSP_ITS ---
Subjective Subjective No issues overnight, leukocytosis resolved Objective Data Objective Data Vital Signs: Vital Signs Temp Pulse Resp BP Pulse Ox O2 Del Method O2 Flow Rate 98.1 F 62 19 H 114/69 92 Room Air 2 02/04/24 14:00 02/04/24 14:00 02/04/24 14:00 02/04/24 14:00 02/04/24 14:00 02/04/24 14:00 02/03/24 04:26 Oxygen Flow Rate (L/min) 2 Oxygen Delivery Method Room Air Weight: 171 lb 4.787 oz Body Mass Index (BMI) 27.5 Intake & Output: Intake and Output for Last 24 Hours 02/03/24 02/04/24 02/05/24 03:59 03:59 03:59 Intake Total 2370 / 2370 803.33 / 803.33 Output Total 550 / 550 300 / 300 Balance 1820 / 1820 503.33 / 503.33 Lab / Micro Data 02/04/24 05:43 02/04/24 05:43 Labs: Laboratory Results - last 24 hr 02/04/24 05:43: WBC 10.0, RBC 3.78 L, Hgb 11.8 L, Hct 35.8 L, MCV 94.7 H, MCH 31.2, MCHC 33.0, RDW Std Deviation 46.5 H, RDW Coeff of Kellie 13.3, Plt Count 193, MPV 10.4, Immature Gran % (Auto) 0.300, Neut % (Auto) 80.0 H, Lymph % (Auto) 10.5 L, [place] % (Auto) 8.2, Eos % (Auto) 0.7, Baso % (Auto) 0.3, Absolute Neuts (auto) 8.0 H, Absolute Lymphs (auto) 1.05, Nucleated RBC % 0, Sodium 144, P otassium 3.3 L, Chloride 113 H, Carbon Dioxide 23.0, Anion Gap 8, BUN 29 H, C reatinine 0.51 L, Estim Creat Clear Calc 86.70, Est GFR (MDRD) Af Amer 207, Est GFR (MDRD) Non-Af 171, BUN/Creatinine Ratio 56.8 H, Glucose 89, Calcium 7.9 L Micro: Microbiology 02/03/24 10:55 Mucosa - Nose SARS-CoV-2, Influenza & RSV (PCR) - Final Physical Exam Narrative General: Alert, nonverbal HEENT: Atraumatic, PERRLA, EOMI, Normocephalic Oral: Moist Mucosa Neck: Supple, No JVD Lungs: Diminished, Normal air movement, No rhonchi, No wheeze, No rales Cardiovascular: Regular rate, Regular Rhythm, Normal S1, Normal S2, No murmurs Abdomen: Soft, Non Tender, Non-Distended, No Hepato-splenomegaly Extremities: No edema, Capillary Refill Less than 3 Seconds Skin: No rashes, No breakdown Musculoskeletal: No Tenderness to Palpation of Joints or Extremities Neurological: No focal neurological deficits, moves all extremities, at baseline Psych/Mental Status: Flat Assessment & Plan Assessment/Plan (1) Lactic acidosis: (2) Bloody diarrhea: (3) Acute cystitis without hematuria: (4) Hypotension: QUALIFIERS: Hypotension type: unspecified hypotension type Q ualified Code(s): I95.9 - Hypotension, unspecified (5) Cerebral palsy: QUALIFIERS: Cerebral palsy type: unspecified type Qualified Code(s): G80.9 - Cerebral palsy, unspecified PLAN: Plan 1. UTI with diarrhea ? Cultures are pending ? Bleeding scan was negative, will continue with PPI while inpatient ? Hemoglobin is stable, no further bloody bowel movements so if his hemoglobin stays stable he can follow-up with GI as an outpatient ? White blood cell count resolved very quickly as has his diarrhea will continue with empiric antibiotics 2. Essential HTN ? Blood pressure are stable ? Can resume home blood pressure medications when verified 3. Severe MRDD/seizure disorder ? He does have a guardian that we are trying to get a hold of to be able to verify his medications ? In the meantime we will continue with his carbamazepine and risperidone 4. Hypothyroidism ? Stable, TSH of 1.92 ? Continue with Synthroid DVT: SCDs Charges/Coding Visit Charges Inpatient E&M: 38709 Subs Hosp L2
[2024-02-04 20:00] VITALS: BP 127/70; PULSE 68; RESP 15; TEMP 36.6; O2SAT 93
[2024-02-05 02:00] VITALS: BP 124/59; PULSE 59; RESP 10; TEMP 36.4; O2SAT 100
[2024-02-05 05:07] VITALS: BMI 28.0
[2024-02-05] MEDS: Piperacil/Tazobactam 3.375 GM in 0.9% Normal Saline (50mL MB+) 50 ML IV ×3 (06:14→21:27)
[2024-02-05] MEDS: Mupirocin Ointment 22gm Tube 1 APPLIC TOPICAL ×3 (06:14→21:30)
[2024-02-05] MEDS: Levothyroxine 75 MCG Tablet PO (06:14)
[2024-02-05 07:45] LABS: Absolute Lymphocyte Count 1.09 X10^3/uL (0.83-4.51); Absolute Neutrophil Count 5.4 X10^3/uL (2.0-7.7); Basophil# 0.03 X10^3/uL; Basophil% 0.4 % (0-1); Eosinophil# 0.14 X10^3/uL; Hematocrit 34.3 % (40-54); Hemoglobin 11.5 g/dL (13.0-16.5); Lymphocyte # 1.09 X10^3/ul (0.83-4.51); Lymphocyte % 15.2 % (19-41); Mean Corp Hgb Conc 33.5 g/dL (32-36); Mean Corpuscular Hgb 31.3 pg (27.0-32.0); Mean Corpuscular Volume 93.5 fL (80-94); Mean Platelet Vol. 10.2 fl (6.2-12.0); NRBC Flagged by Analyzer 0 % (0-5); Neutrophil # 5.37 X10^3/uL (2.7-7.7); Neutrophil % 75.1 % (47-70); Platelet Count 173 K/mm3 (150-450); RBC Distribution Width CV 13.3 % (11.6-14.6); RBC Distribution Width SD 45.8 fl (35.1-43.9); Red Blood Count 3.67 M/mm3 (4.6-6.2); White Blood Count 7.2 K/mm3 (4.4-11.0)
[2024-02-05 08:10] LABS: Anion Gap 6 (5-15); BUN 24 mg/dL (7-18); BUN/Creat Ratio 51.1 RATIO (10-20); Calcium,Total 8.3 mg/dL (8.5-10.1); Chloride 115 mmol/L (98-107); Creatinine, Serum 0.47 mg/dL (0.70-1.30); EST Glomerular Filtration Rate 189 mL/min (>60); Est Glom Filt Rate - Afr Amer 228 mL/min (>60); Glucose 93 mg/dL (74-106); Potassium 3.2 mmol/L (3.5-5.1); Sodium Level 144 mmol/L (136-145)
[2024-02-05] MEDS: Folic Acid 1 MG Tablet PO (08:18)
[2024-02-05] MEDS: Calcium (Elemental) 500 MG Tablet PO ×2 (08:18→21:29)
[2024-02-05] MEDS: Multivitamins,Therapeutic Tablet 1 TABLET PO (08:18)
[2024-02-05] MEDS: RisperiDONE 2 MG Tablet PO ×2 (08:19→21:28)
[2024-02-05] MEDS: carBAMazepine 200 MG Tablet 100 MG PO ×2 (08:19→17:37)
[2024-02-05] MEDS: carBAMazepine 200 MG Tablet PO ×2 (08:19→17:37)
[2024-02-05 08:59] VITALS: BP 158/81; PULSE 74; RESP 20; TEMP 36.5; O2SAT 95
--- NOTE | 2024-02-05 10:29 | ST.MBS ---
Modified Barium Swallow Patient Information Study Date: 02/05/24 Study Time: 10:30 Direct Billable Minutes: 123 Total Minutes procedure & reportin Diagnosis: Cerebral Palsy G80.9 Referring Physician: Chapin Ceron Reason for Referral: Objectively assess swallow function, assess risk for aspiration, and determine recommendations for least restrictive diet textures and compensatory strategies to improve safety of swallow. Medical History: PMH: Cerebral Palsy, severe MRDD; nonverbal and bedbound at baseline with intellectual delay, seizure disorder; on carbamazepine, essential hypertension, hypothyroidism and osteoporosis. He was transferred to [facility] ED 02/03/24 from [facility] with complaints of bloody diarrhea and sepsis. He lives in a [place] [facility]. He was admitted to the ICU for ongoing care. He was referred for ST consult due to concern for swallowing difficulty. CNC SPECIALIST spoke with caregiver, Jenny, via phone call 02/03/24 who reported he is currently on a mechanical soft/minced diet with nectar/mildly thick liquids. When he is not eating food, he is ok to consume thin liquids at the [place] [facility]. He has had no PNA or respiratory infection in the past couple of years per Jenny. He last saw speech therapy at the [place] [facility] ~1 year ago. RN, Matilda, was told in report from the [place] [facility] that he is on a puree diet. BSE 02/03/24 recommended minced and moist textures / mildly thick liquids with plan for MBSS in upcoming sessions to determine recommendations for LRD textures and safe swallowing precautions for the patient. Verbal consent was obtained from [facility] guardianship food service representative, Connie Dick, this morning. Group staff member, Rachana, was present for the evaluation. Rachana reported that the patient uses straws and a special cup at the [facility] due to his absence of teeth and choking risk. She also said he consumes nectar thick liquids due to absence of teeth and choking risk. CNC SPECIALIST ensured the staff member that the patient should be okay to trial small sips of thin liquids via both cup and straw with the CNC SPECIALIST during the MBSS despite lack of teeth in order to assess aspiration risk. Current Diet Ordered: Minced & moist textures / Mildly thick liquids Dentition: Edentulous Mental Status: Impaired Respiratory Status: Oxygenating on Room Air Penetration-Aspiration Scale Penetration-Aspiration Scale: OBJECTIVE ASSESSMENT OF SWALLOW FUNCTION (QUANTITATIVE ? PER TRIAL): PENETRATION / ASPIRATION SCALE (SNELL): 1 = does not enter airway 2 = enters airway/above vocal folds/ejected 3 = enters airway/above vocal folds/not ejected 4 = enters airway/contacts vocal folds/ejected 5 = enters airway/contacts vocal folds/not ejected 6 = enters airway/below vocal folds/ejected 7 = enters airway/below vocal folds/not ejected despite effort 8 = enters airway/below vocal folds/no effort VIDEOFLOROSCOPIC SCALE SCORE (SNELL): Grade I = aspiration of material that has penetrated into the laryngeal vestibule, intact cough reflex Grade II = aspiration < 10 % of the bolus, intact cough reflex Grade III = aspiration of < 10 % of the bolus, reduced cough reflex or aspiration of > 10 % of the bolus, intact cough reflex Grade IV = aspiration of > 10 % of the bolus, reduced cough reflex Penetration-Aspiration Scale Score Thin Liquid via teaspoon: Result: 1= does not enter airway Thin Liquid via single sip: straw: Result: 2= enter airway/above vocal folds/ejected Thin Liquid via small single sip: cup: Result: 1= does not enter airway [place] Thick Liquid via single sip: straw: Result: 1= does not enter airway Pudding via teaspoon: Result: 1= does not enter airway Cookie crushed and coated in barium pudding: Result: 1= does not enter airway Thin Liquid via single sip: straw Trial 2: Result: 1= does not enter airway Oral Phase Labial Seal: Escape beyond mid-chin Tongue Control During Bolus Hold: Posterior escape of greater than half of bolus Bolus Preparation/Mastication: Disorganized chewing/mashing with solid pieces of bolus unchewed Bolus Transport/Lingual Motion: Repetitive/disorganized tongue motion Oral Residue: Trace residue lining oral structures Pharyngeal Phase Initiation of Pharyngeal Swallow: Bolus head in pyriforms Soft Palate Elevation: No bolus between soft palate and pharyngeal wall Laryngeal Elevation: Comp. Superior move thyroid cart w/comp. apprx arytenoid cart-epig pet Anterior Hyoid Excursion: Partial anterior movement Epiglottic Movement: No inversion (Inconsistent inversion) Laryngeal Vestibule Closure at Height of Swallow: Incomplete; narrow column of air/contrast in laryngeal vestibule Pharyngeal Stripping Wave: Present - diminished Pharyngoesophageal Segment Opening: Complete distension and complete duration; no obstruction of flow Tongue Base Retraction: Narrow column of contrast between tongue base & post. pharyngeal wall Pharyngeal Residue: Collection of residue within or on pharyngeal structures Diagnosis/Impression Diagnosis: Moderate oropharyngeal dysphagia R13.12 Impression: The oral phase is primarily marked by... -Disorganized tongue motion with decreased bolus control most notable with premature posterior loss of liquids to the pyriforms prior to swallow onset. -Although A-P transport showed disorganized tongue motion, the patient demonstrated good oral clearance. -Poor, disorganized mastication of crushed cookie coated in barium pudding. The pharyngeal phase is primarily marked by... -Delayed swallow onset. -Decreased anterior hyoid excursion and inconsistent epiglottic inversion. -Cannot definitively rule out aspiration due patient's body habitus; however, he did not appear to aspirate any consistencies during the study. Trace laryngeal penetration with full ejection of thin liquids via straw 1X. Recommendations Comment: Minced and Moist Textures (IDDSI Level 5) / Thin Liquids (IDDSI Level 0) Compensatory Strategies: Small Bites, Small Sips (One at a time), Sips by straw only, Slow Rate, Alternate bites/solids and sips/liquids, Sitting upright and Remain sitting upright for 30 minutes after PO intake Supervision: Total Feed Recommend Repeat Modified Barium Swallow: TBD Comment: If concerns for poor diet tolerance at [place] [facility], please consult a CNC SPECIALIST and consider repeat MBSS to re-assess swallow function and aspiration risk. Need for Skilled Speech Therapy Services: Yes Comment: -Train the [place] [facility] staff in diet texture preparation and use of strategies to decrease risk for aspiration. -Ongoing assessment of diet tolerance of recommended textures. Education Completed: 1. Described result of evaluation. Comment: CNC SPECIALIST described recommendations with patient and [place] [facility] staff member, Rachana, who was present for the study. Following CNC SPECIALIST review of recommendations, Rachana reported that the patient's roommate requires thickener and that the home makes one pitcher for the two of them. This CNC SPECIALIST re-iterated that based on the patient's performance on this MBSS, the patient is NOT recommended for thickener with drinks. CNC SPECIALIST reviewed recommendations with [facility] RN, Erick, who verbalized good understanding of recommended diet textures and strategies. Status Active ST Patient: Active Contact Information [facility] Speech Therapy:: Michelle Rangel M.A. [facility]-CNC SPECIALIST? Speech-Language Pathologist?? [facility] [address]?? [place] [address]?? [email or web address]?? [phone]
[2024-02-05] MEDS: Pantoprazole Sodium 40 MG in 0.9% Normal Saline (100mL MB+) 100 ML 330 MG IV ×2 (11:20→21:27)
[2024-02-05] MEDS: Triamcinolone Acetonide 0.1% Cream 15 gm 1 APPLIC TOPICAL (11:20)
--- NOTE | 2024-02-05 14:39 | PN.HOSP_ITS ---
Subjective Subjective No issues overnight Objective Data Objective Data Vital Signs: Vital Signs Temp Pulse Resp BP Pulse Ox O2 Del Method O2 Flow Rate 97.7 F L 74 20 H 158/81 H 95 Room Air 2 02/05/24 08:59 02/05/24 08:59 02/05/24 08:59 02/05/24 08:59 02/05/24 08:59 02/05/24 08:59 02/03/24 04:26 Oxygen Flow Rate (L/min) 2 Oxygen Delivery Method Room Air Weight: 174 lb 13.225 oz Body Mass Index (BMI) 28.0 Intake & Output: Intake and Output for Last 24 Hours 02/04/24 02/05/24 02/06/24 03:59 03:59 03:59 Intake Total 2370 / 2370 1013.33 / 1013.33 160 / 160 Output Total 550 / 550 700 / 700 200 / 200 Balance 1820 / 1820 313.33 / 313.33 -40 / -40 Lab / Micro Data 02/05/24 07:24 02/05/24 07:24 Labs: Laboratory Results - last 24 hr 02/05/24 07:24: WBC 7.2, RBC 3.67 L, Hgb 11.5 L, Hct 34.3 L, MCV 93.5, MCH 31.3, MCHC 33.5, RDW Std Deviation 45.8 H, RDW Coeff of Kellie 13.3, Plt Count 173, MPV 10.2, Immature Gran % (Auto) 0.300, Neut % (Auto) 75.1 H, Lymph % (Auto) 15.2 L, [place] % (Auto) 7.0, Eos % (Auto) 2.0, Baso % (Auto) 0.4, Absolute Neuts (auto) 5.4, Absolute Lymphs (auto) 1.09, Nucleated RBC % 0, Sodium 144, Potassium 3.2 L , Chloride 115 H, Carbon Dioxide 23.0, Anion Gap 6, BUN 24 H, Creatinine 0.47 L, Estim Creat Clear Calc 87.50, Est GFR (MDRD) Af Amer 228, Est GFR (MDRD) Non-Af 189, BUN/Creatinine Ratio 51.1 H, Glucose 93, Calcium 8.3 L Micro: Microbiology 02/03/24 05:30 Urine, Clean Catch Urine Culture - Preliminary GPC Poss Enterococcus sp 02/03/24 05:20 Blood Culture (Wb) - Other Blood Culture - Preliminary No growth in 48 hours. 02/03/24 05:03 Blood Culture (Wb) - Right Hand Blood Culture - Preliminary No growth in 48 hours. 02/03/24 10:55 Mucosa - Nose SARS-CoV-2, Influenza & RSV (PCR) - Final Physical Exam Narrative General: Alert, nonverbal HEENT: Atraumatic, PERRLA, EOMI, Normocephalic Oral: Moist Mucosa Neck: Supple, No JVD Lungs: Diminished, Normal air movement, No rhonchi, No wheeze, No rales Cardiovascular: Regular rate, Regular Rhythm, Normal S1, Normal S2, No murmurs Abdomen: Soft, Non Tender, Non-Distended, No Hepato-splenomegaly Extremities: No edema, Capillary Refill Less than 3 Seconds Skin: No rashes, No breakdown Musculoskeletal: No Tenderness to Palpation of Joints or Extremities Neurological: No focal neurological deficits, moves all extremities, at baseline Psych/Mental Status: Flat Assessment & Plan Assessment/Plan (1) Lactic acidosis: (2) Bloody diarrhea: (3) Acute cystitis without hematuria: (4) Hypotension: QUALIFIERS: Hypotension type: unspecified hypotension type Q ualified Code(s): I95.9 - Hypotension, unspecified (5) Cerebral palsy: QUALIFIERS: Cerebral palsy type: unspecified type Qualified Code(s): G80.9 - Cerebral palsy, unspecified PLAN: Plan 1. UTI with preliminary Enterococcus cultures with diarrhea ? Cultures are pending, no sepsis ? Bleeding scan was negative, will continue with PPI while inpatient ? Hemoglobin is stable, no further bloody bowel movements so if his hemoglobin stays stable he can follow-up with GI as an outpatient ? White blood cell count resolved very quickly as has his diarrhea will continue with empiric antibiotics 2. Essential HTN ? Blood pressure are stable ? Can resume home blood pressure medications when verified 3. Severe MRDD/seizure disorder ? He does have a guardian that we are trying to get a hold of to be able to verify his medications ? In the meantime we will continue with his carbamazepine and risperidone 4. Hypothyroidism ? Stable, TSH of 1.92 ? Continue with Synthroid DVT: SCDs Charges/Coding Visit Charges Inpatient E&M: 19100 Subs Hosp L2
[2024-02-05 15:00] VITALS: BP 121/68; PULSE 58; RESP 18; TEMP 36.6; O2SAT 97
[2024-02-05 18:18] VITALS: BP 155/78; PULSE 56; RESP 16; TEMP 36.4; O2SAT 96
[2024-02-05 20:00] VITALS: BP 152/98; PULSE 82; RESP 18; TEMP 36.8; O2SAT 99
[2024-02-05 21:38] VITALS: BP 154/98; PULSE 64; RESP 18; TEMP 36.8; O2SAT 99
[2024-02-06 01:40] VITALS: BP 145/82; PULSE 55; RESP 18; TEMP 36.6; O2SAT 99
[2024-02-06 02:52] VITALS: BP 111/59; PULSE 53; RESP 18; TEMP 36.6; O2SAT 99
[2024-02-06 05:51] VITALS: BMI 29.0
[2024-02-06] MEDS: Levothyroxine 75 MCG Tablet PO (06:00)
[2024-02-06] MEDS: Mupirocin Ointment 22gm Tube 1 APPLIC TOPICAL (06:00)
[2024-02-06] MEDS: Piperacil/Tazobactam 3.375 GM in 0.9% Normal Saline (50mL MB+) 50 ML IV (06:01)
[2024-02-06 08:51] LABS: Anion Gap 6 (5-15); BUN 26 mg/dL (7-18); Calcium,Total 8.4 mg/dL (8.5-10.1); Chloride 115 mmol/L (98-107); Creatinine, Serum 0.37 mg/dL (0.70-1.30); EST Glomerular Filtration Rate 252 mL/min (>60); Est Glom Filt Rate - Afr Amer 305 mL/min (>60); Estimated Creatinine Clearance 88.75 ml/min; Glucose 95 mg/dL (74-106); Phosphorus 2.5 mg/dL (2.5-4.9); Potassium 2.9 mmol/L (3.5-5.1); Sodium Level 146 mmol/L (136-145)
[2024-02-06] MEDS: carBAMazepine 200 MG Tablet 100 MG PO (09:17)
[2024-02-06] MEDS: Folic Acid 1 MG Tablet PO (09:17)
[2024-02-06] MEDS: Multivitamins,Therapeutic Tablet 1 TABLET PO (09:17)
[2024-02-06] MEDS: Calcium (Elemental) 500 MG Tablet PO (09:17)
[2024-02-06] MEDS: carBAMazepine 200 MG Tablet PO (09:18)
[2024-02-06] MEDS: RisperiDONE 2 MG Tablet PO (09:18)
[2024-02-06 09:30] VITALS: BP 151/91; PULSE 62; RESP 16; TEMP 36.4; O2SAT 98
[2024-02-06] MEDS: Pantoprazole Sodium 40 MG in 0.9% Normal Saline (100mL MB+) 100 ML 330 MG IV (10:45)
--- NOTE | 2024-02-06 11:38 | DCINST_ITS ---
Discharge Instructions Activity Discharge Activity: Return to Normal Activity Dressing / Incision Call your doctor if you observe: Fever of 101 or Higher, Shortness of breath, Dizziness, Fainting spells, Swelling in the ankles, Chest pain and Increased palpitations (irregular heartbeat) Follow Up Care Test Results: Test results from this visit will be discussed in further detail at your follow- up appointment, if applicable. Discharge Plan Admission Admit Date/Time: 02/03/24 04:32 Attending Provider: Chapin Ceron Primary Care Provider: Michel Cassidy Consulting Providers: Luís Gonzalez Instructions Additional Instructions / Restrictions: Follow-up with your PCP in 3 to 5 days to monitor your potassium as well as progress in your recovery Discharge Orders/Prescriptions Prescriptions: New amoxicillin-pot clavulanate 875-125 mg tablet 1 tab PO BID 3 Days Qty: 6 0RF potassium chloride 20 mEq tablet extended release 20 meq PO DAILY Qty: 20 0RF Continued polyethylene glycol 3350 17 GM powder in packet 17 g PO Q4H PRN alendronate 70 MG tablet 70 mg PO Q7D@0700 Rx Instructions: takes on sundays levothyroxine 75 MCG tablet 75 mcg PO DAILY risperidone 2 MG tablet 2 mg PO BID carbamazepine 200 MG tablet 100 mg PO BIDCM carbamazepine 200 MG tablet 200 mg PO BIDCM folic acid 1 MG tablet 1 mg PO DAILY@0800 hydrochlorothiazide 25 MG tablet 25 mg PO DAILY mupirocin 1 APPLIC ointment 1 applic topical TID Certavite 1 tab PO DAILY Oyster Shell 500 mg PO BID bacitracin 500 unit/gram ointment 1 applic topical DAILY PRN (Reason: cuts and abrasions) loratadine 10 mg tablet 10 mg PO DAILY montelukast 10 mg tablet 10 mg PO DAILY sennosides-docusate sodium [Senna Plus] 8.6-50 mg tablet 1 tab-cap PO BID triamcinolone acetonide 0.1 % cream 1 applic topical TID Referrals / Follow Up: Michel Cassidy MD [Primary Care Provider] - Within 1 Week Disposition Disposition (needs filled in before D/C Order can be placed): Home, Self Care
[2024-02-06] MEDS: Potassium Chloride Oral Tablet 20 MEQ 60 MEQ PO (11:56)
--- NOTE | 2024-02-06 11:59 | CASEMGMT ---
Patient is ready for discharge back to the [place] [facility]. REYMUNDO called Kathrine NEGRETE with the [place] [facility] and let her know that patient will be discharged today. REYMUNDO will contact Kathrine once patient is ready to go. REYMUNDO called patient's guardian Verito Dick and left her a voice mail letting her know patient is being discharged. Kajal Neal PBX INSPECTOR GRETEL
--- NOTE | 2024-02-06 13:16 | CASEMGMT ---
Addendum entered by Kajal Neal 02/06/24 15:00: REYMUNDO faxed MBS results to Kathrine per their request. Kajal MAJANO Original Note: REYMUNDO received a call from patient's [facility] and someone will be at [facility] to pear picker patient at 130. REYMUNDO notified department secretary who notified RN. REYMUNDO faxed d/c instructions to Kathrine ([phone]). Kajal MAJANO
[2024-02-06 13:32] VITALS: BP 150/84; PULSE 55; RESP 16; TEMP 36.2; O2SAT 100
--- NOTE | 2024-02-06 14:35 | NURSING ---
Report called to Kathrine from [facility].
--- NOTE | 2024-02-06 15:50 | DS.PCM_ITS ---
Providers Date of Admission: 02/03/24 Primary Care Physician: Dr. Michel Cassidy MD Consultations 02/03/24 04:27 Consult: Transporter Driver / Pulmonary Medicine Routine Consulting Provider: Intensivists/Pulmonary Med Reason for Consult: Sepsis EMERGENT Consult: No MD Notified: Yes Date Notified: 02/03/24 Time Notified: 04:30 Method of Notification: Text Reason For Visit: BLOODY DIARRHEA WITH SEPSIS Diagnosis Discharge Diagnosis (1) Lactic acidosis: Status: Acute Code(s): E87.20 - Acidosis, unspecified (2) Bloody diarrhea: Status: Acute Code(s): R19.7 - Diarrhea, unspecified (3) Acute cystitis without hematuria: Status: Acute Code(s): N30.00 - Acute cystitis without hematuria (4) Hypotension: Status: Acute Code(s): I95.9 - Hypotension, unspecified Qualifiers: Hypotension type: unspecified hypotension type Qualified Code(s): I95.9 - Hypotension, unspecified (5) Cerebral palsy: Status: Acute Code(s): G80.9 - Cerebral palsy, unspecified Qualifiers: Cerebral palsy type: unspecified type Qualified Code(s): G80.9 - Cerebral palsy, unspecified Medications at Discharge Home Medications Certavite 1 tab PO DAILY vitamin 08/09/14 Oyster Shell 500 mg PO BID mineral/electrolytes 08/09/14 alendronate 70 mg tablet 70 mg PO Q7D@0700 unknown 08/09/14 carbamazepine 200 mg tablet 100 mg PO BIDCM seizures 08/09/14 carbamazepine 200 mg tablet 200 mg PO BIDCM seizures 08/09/14 folic acid 1 mg tablet 1 mg PO DAILY@0800 supplement 08/09/14 hydrochlorothiazide 25 mg tablet 25 mg PO DAILY bp 08/09/14 levothyroxine 75 mcg tablet 75 mcg PO DAILY thyroid 08/09/14 mupirocin 2 % topical ointment 1 applic topical TID unknown 08/09/14 polyethylene glycol 3350 17 gram oral powder packet 17 g PO Q4H PRN constipation 08/09/14 risperidone 2 mg tablet 2 mg PO BID antipsychotic 08/09/14 amoxicillin 875 mg-potassium clavulanate 125 mg tablet 1 tab PO BID 3 days #6 tabs 02/06/24 bacitracin 500 unit/gram topical ointment 1 applic topical DAILY PRN cuts and abrasions 02/06/24 loratadine 10 mg tablet 10 mg PO DAILY allergies 02/06/24 montelukast 10 mg tablet 10 mg PO DAILY allergies 02/06/24 potassium chloride 20 mEq tablet,extended release 20 meq PO DAILY #20 tabs 02/06/24 sennosides 8.6 mg-docusate sodium 50 mg tablet (Senna Plus) 1 tab-cap PO BID constipation 02/06/24 triamcinolone acetonide 0.1 % topical cream 1 applic topical TID elbow rash/itching 02/06/24 Hospital Course Operations None Procedures None Summary of Care Provided Minutes Spent on Discharge: 33 Hospital Course: Per HPI: AARON HUDSON, is a 68 M with a past medical history of Cerebral Palsy, severe MR-DD; nonverbal and bedbound at baseline with intellectual delay, seizure disorder; on carbamazepine, essential hypertension, hypothyroidism and osteoporosis who was sent to [facility] in transfer from [facility] ER with complaints of bloody diarrhea and sepsis. Mr. Hudson is not a reliable historian so information was gathered from chart, medical staff and computer. According to the records the patient's symptoms began approximately 1 day prior to admission with patient having decreased appetite and indicating abdominal pain followed by bloody loose stools. In the ER at [facility] [place] [facility] he was noted to have leukocytosis os 20k with lactic acidosis of 2.6 mmol/L and a systolic blood pressure in the 90 mmHg range with a UA positive for Acute Cystitis; without hematuria so he was treated with IV Zosyn and given a sepsis fluid bolus of 30 cc/kg and then arrangements were made to transfer him here for ongoing care as they were apparently unable to care for him at that facility. He was then admitted to the ICU for ongoing care for stay that is expected to extend beyond 2 midnights. Hospital Course: 1. UTI with pulmonary Enterococcus cultures with diarrhea?68-year-old male with severe MRDD who is nonverbal presented to the hospital from an outside hospital with bloody diarrhea and the belief that he had sepsis. On arrival here vital signs and lab work did not indicate sepsis and he had significant improvement just a few hours after admission. Ultimately urine cultures demonstrated an 11- 25,000 CFU's of Enterococcus and he was on Zosyn with significant improvement in his white count so he was transition to p.o. Augmentin twice daily for 3 days. He never had any diarrhea or bloody bowel movements in the hospital so I do recommend that he follow-up with GI as an outpatient if he were to have any further diarrhea episodes. His hemoglobin has remained stable while here so he likely had either a hemorrhoidal bleed or diverticular bleed that resolved on its own. During his hospitalization he did have a modified barium swallow, which was abnormal and speech therapy recommended a minced and moist diet with mildly thick liquids recommending small bites and small sips while sitting upright. The modified barium swallow evaluation was faxed to his caregivers. 2. Essential hypertension, severe MRDD, seizure disorder, hypothyroidism are all chronic medical conditions which complicate his care. His home medications were continued where appropriate Physical Exam Narrative General: Alert, nonverbal HEENT: Atraumatic, PERRLA, EOMI, Normocephalic Oral: Moist Mucosa Neck: Supple, No JVD Lungs: Diminished, Normal air movement, No rhonchi, No wheeze, No rales Cardiovascular: Regular rate, Regular Rhythm, Normal S1, Normal S2, No murmurs Abdomen: Soft, Non Tender, Non-Distended, No Hepato-splenomegaly Extremities: No edema, Capillary Refill Less than 3 Seconds Skin: No rashes, No breakdown Musculoskeletal: No Tenderness to Palpation of Joints or Extremities Neurological: No focal neurological deficits, moves all extremities, at baseline Psych/Mental Status: Flat Weight / BMI Weight Weight: 180 lb 5.41 oz Body Mass Index (BMI) 29.0 ABG / Lab / Microbiology Data 02/05/24 07:24 02/06/24 06:03 Laboratory: Laboratory Results - last 24 hr 02/06/24 06:03: Sodium 146 H, Potassium 2.9 L, Chloride 115 H, Carbon Dioxide 25.0, Anion Gap 6, BUN 26 H, Creatinine 0.37 L, Estim Creat Clear Calc 88.75, Est GFR (MDRD) Af Amer 305, Est GFR (MDRD) Non-Af 252, BUN/Creatinine Ratio 71.0 H, Glucose 95, Calcium 8.4 L, Phosphorus 2.5, Magnesium 2.0 Microbiology: Microbiology 02/03/24 05:30 Urine, Clean Catch Urine Culture - Preliminary GPC Poss Enterococcus sp 02/03/24 05:20 Blood Culture (Wb) - Other Blood Culture - Preliminary No growth in 48 hours. 02/03/24 05:03 Blood Culture (Wb) - Right Hand Blood Culture - Preliminary No growth in 48 hours. 02/03/24 10:55 Mucosa - Nose SARS-CoV-2, Influenza & RSV (PCR) - Final D/C Instructions Call your doctor if you observe: Fever of 101 or Higher, Shortness of breath, Dizziness, Fainting spells, Swelling in the ankles, Chest pain and Increased palpitations (irregular heartbeat) Meaningful Use Info Meaningful Use Meaningful Use Diagnoses (Choose all that apply): None applicable Ischemic Stroke Statin Dosing Therapy Reference: STATIN DOSE THERAPY REFERENCE: * Patients > 75 years receive moderate or high dose statin therapy. * Patients 75 years or YOUNGER should receive HIGH intensity statin dose unless contraindicated. You will be required to document reason for non-treatment if statin daily dose does not meet guidelines. HIGH DOSE STATIN THERAPY DAILY Atorvastatin > than or = to 40 mg Rosuvastatin > than or = to 20 mg Amlodipine + Atorvastatin > than or = to 2.5/40 mg Ezetimibe + Simvastatin 10/80 mg Simvastatin 80mg Discharge Plan Admission Admit Date/Time: 02/03/24 04:32 Attending Provider: Chapin Ceron Primary Care Provider: Michel Cassidy Consulting Providers: Luís Gonzalez Instructions Additional Instructions / Restrictions: Follow-up with your PCP in 3 to 5 days to monitor your potassium as well as progress in your recovery Discharge Orders/Prescriptions Prescriptions: New amoxicillin-pot clavulanate 875-125 mg tablet 1 tab PO BID 3 Days Qty: 6 0RF potassium chloride 20 mEq tablet extended release 20 meq PO DAILY Qty: 20 0RF Continued polyethylene glycol 3350 17 GM powder in packet 17 g PO Q4H PRN alendronate 70 MG tablet 70 mg PO Q7D@0700 Rx Instructions: takes on sundays levothyroxine 75 MCG tablet 75 mcg PO DAILY risperidone 2 MG tablet 2 mg PO BID carbamazepine 200 MG tablet 100 mg PO BIDCM carbamazepine 200 MG tablet 200 mg PO BIDCM folic acid 1 MG tablet 1 mg PO DAILY@0800 hydrochlorothiazide 25 MG tablet 25 mg PO DAILY mupirocin 1 APPLIC ointment 1 applic topical TID Certavite 1 tab PO DAILY Oyster Shell 500 mg PO BID bacitracin 500 unit/gram ointment 1 applic topical DAILY PRN (Reason: cuts and abrasions) loratadine 10 mg tablet 10 mg PO DAILY montelukast 10 mg tablet 10 mg PO DAILY sennosides-docusate sodium [Senna Plus] 8.6-50 mg tablet 1 tab-cap PO BID triamcinolone acetonide 0.1 % cream 1 applic topical TID Referrals / Follow Up: Michel Cassidy MD [Primary Care Provider] - Within 1 Week Disposition Disposition (needs filled in before D/C Order can be placed): Home, Self Care Charges/Coding Visit Charges Inpatient E&M: 58953 Disch Hosp >30min
--- NOTE | 2024-02-11 12:28 | CASEMGMT ---
REYMUNDO received a fax from Natalia Gonsales with [facility] requesting admission information. REYMUNDO faxed H&P and admitting order. (Natalia fax: [phone]). Kajal MAJANO
== END 2024-02-06 14:25 | disposition home or self-care (01) | DRG 690 ==
LOC: ICU 02-04 17:38 → PCU 02-05 18:15
PROVIDERS: Admitting Provider Internal Medicine; PCP Family Medicine; Visit Provider Family Medicine
DX: N30.00 Acute cystitis without hematuria (principal); E87.20 Acidosis, unspecified; F72 Severe intellectual disabilities; G80.9 Cerebral palsy, unspecified; G40.909 Epilepsy, unspecified, not intractable, without status epilepticus; E03.9 Hypothyroidism, unspecified; I10 Essential (primary) hypertension; M81.0 Age-related osteoporosis without current pathological fracture; B95.2 Enterococcus as the cause of diseases classified elsewhere; Z79.899 Other long term (current) drug therapy
CPT/HCPCS: 36415; 74230; 78278; 80048; 80053; 81001; 83605; 83735; 84100; 84443; 84484; 85025; 87040; 87077; 87086; 87088; 87186; 87631; 92526; 92610; 92611; A9560; J7030

== ENCOUNTER 2024-03-17 09:41 | Outpatient (RCR) | payer MEDICARE, MEDICAID, SELFPAY ==
[2024-02-14 00:11] VITALS: BP 116/67; PULSE 69; RESP 16; TEMP 36.7
== END 2024-04-14 23:59 | disposition home or self-care (01) ==
LOC: WC 09:41
PROVIDERS: PCP Family Medicine; Referring Provider Family Medicine; Visit Provider Nurse Practitioner
DX: Z09 Encounter for follow-up examination after completed treatment for conditions other than malignant neoplasm (principal)

== ENCOUNTER → 2025-03-03 | Outpatient (CLI) | payer MEDICARE, MEDICAID, SELFPAY ==
--- NOTE | 2025-03-03 11:40 | RAD_ITS ---
PROCEDURE: CHEST PA AND LATERAL 03/03/2025 REASON FOR EXAM: SEVER INTELLECTUAL DISABILITIES, CEREBRAL PALSY, DYSPHAGIA TECHNIQUE: CHEST PA AND LATERAL COMPARISON: None FINDINGS: Hardware: Prior fusion of the lower cervical spine. Heart: Cardiomegaly. Mediastinum: The mediastinal contour is unremarkable. Lungs: There is evidence of increased markings at the lung bases suggestive of bibasilar atelectasis and/or early infiltrates. Mild vascular congestion. Bones: Degenerative changes are identified within the thoracic spine. RAD/Chest PA and Lateral IMPRESSION: Cardiomegaly. Mild degree of vascular congestion with bibasilar atelectasis and/or early infi ltrates. Reading Location: [id number]
== END | disposition home or self-care (01) ==
LOC: RAD 11:32
PROVIDERS: PCP Family Medicine; Referring Provider Clinical Nurse Specialist; Visit Provider Clinical Nurse Specialist
DX: F72 Severe intellectual disabilities (principal); G80.9 Cerebral palsy, unspecified; R13.10 Dysphagia, unspecified
CPT/HCPCS: 71046